=== PATIENT | female | born 1990 | race Caucasian/White ===

== ENCOUNTER 2019-11-03 08:46 | Emergency (ER) | payer OTHER ==
[2019-11-03 08:58] VITALS: BP 116/72
[2019-11-03 09:23] LABS: RAPID STREP SCREEN Negative (Negative)
--- NOTE | 2019-11-03 09:48 | ED Physician Documentation ---
PD HPI HEENT - Stated complaint Stated Complaint: SORE THROAT - Chief complaint Chief Complaint: Heent - History obtained from History obtained from: Patient - History of Present Illness Timing - onset: How many days ago (4) Timing - duration: Days (4) Timing - details: Gradual onset, Still present Location: Throat Improves: Medication Worsens: Swalllowing Associated symptoms: No: Fever, Congestion, Rhinorrhea, Trismus, Unable to swallow, Swollen nodes, Facial swelling, Headache, Cough Similar symptoms before: Diagnosis (kanker sore) Recently seen: Not recently seen - Additional information Additional information: 29-year-old female has developed some canker sores on her lower buccal mucosa last week and this seemed to get better and then suddenly she is much worse with a sore throat beginning early this morning. She has not had fever with this she is not had congestion or cough. She has recently moved to the area there is been some stress with the move itself she has a 6-year-old and 1-year-old. Review of Systems Constitutional: denies: Fever, Chills, Myalgias Eyes: denies: Decreased vision Ears: denies: Ear pain Nose: denies: Rhinorrhea / runny nose, Congestion Throat: reports: Oral lesions / sores, Sore throat Cardiac: denies: Chest pain / pressure, Palpitations Respiratory: denies: Dyspnea, Cough GI: denies: Nausea, Vomiting PD PAST MEDICAL HISTORY - Present Medications Home Medications: Ambulatory Orders Medication Instructions Recorded Confirmed Fluconazole [Diflucan] 100 mg PO DAILY #10 tablet 11/03/19 - Allergies Allergies/Adverse Reactions: Allergies Allergy/AdvReac Type Severity Reaction Status Date / Time No Known Drug Allergies Allergy Verified 11/03/19 08:56 - Social History Does the pt smoke?: No Smoking Status: Never smoker PD ED PE NORMAL - Vitals Vital signs reviewed: Yes (Normal) - General General: Alert and oriented X 3, No acute distress, Well developed/nourished - HEENT HEENT: Atraumatic, PERRL, EOMI, Ears normal, Moist mucous membranes, Other (There are aphthous ulcers in the gingival buccal fold on the right lower and left lower jaw. There is a white membrane over the tongue and soft palate consistent with thrush. Tonsils are not inflamed.) - Neck Neck: Supple, no meningeal sign, No bony TTP - Cardiac Cardiac: RRR, No murmur - Respiratory Respiratory: No respiratory distress, Clear bilaterally - Abdomen Abdomen: Soft, Non tender - Back Back: No CVA TTP, No spinal TTP - Derm Derm: Normal color, Warm and dry, No rash - Extremities Extremities: No deformity, No edema, No calf tenderness / cord - Neuro Neuro: Alert and oriented X 3, denitrator 2-12 intact, No motor deficit, No sensory deficit, Normal speech Eye Opening: Spontaneous Motor: Obeys Commands Verbal: Oriented GCS Score: 15 - Psych Psych: Normal mood, Normal affect Results - Vitals Vitals: Vital Signs - 24 hr 11/03/19 08:56 Temperature 36.8 C Heart Rate 57 L Respiratory 16 Rate Blood Pressure 116/72 O2 Saturation 100 Oxygen O2 Source Room air - Labs Labs: Laboratory Tests 11/03/19 09:01 Group A Strep Rapid Negative PD MEDICAL DECISION MAKING - ED course Complexity details: considered differential, d/w patient ED course: 29-year-old female with canker sores has now developed thrush in her mouth. We will start her on some fluconazole. Departure - Departure Disposition: Home, Self Care Clinical Impression: Thrush, oral Condition: Stable Instructions: Thrush Oral Follow-Up: DEEDEE Gray [Provider Group] Prescriptions: Fluconazole [Diflucan] 100 mg PO DAILY #10 tablet
== END 2019-11-03 10:02 | disposition home or self-care (01) ==
LOC: ED 08:46
DX: B37.0 Candidal stomatitis (principal); K12.0 Recurrent oral aphthae
CPT/HCPCS: 87070; 87077; 87430; 99283; 99284